=== PATIENT | female | born 1940 | race Caucasian/White ===

== ENCOUNTER → 2017-03-01 | Outpatient (CLI) | payer MEDICARE ==
[~2017-03-01] MED LIST: ALPHAGAN-P5 ML OU; ASA325 MG PO; COMPAZINE10 MG PO; CORTISPORIN CR7.5 GM; CULTURELLE1 CAP PO; DUONEB DPS3 ML IH; KLONOPIN DPS1 MG PO; MILK OF MAGNESI10 ML PO; MIRALAX PACKET17 GM PO; NEURONTIN DPS300 MG PO; NORVASC5 MG PO; PRESERVISION A1 EAC1 PO; PROTONIX40 MG PO; SENOKOT S1 TAB PO; SURFAK DPS240 MG PO; SYNTHROID DP0.075 MG PO; THERA1 EACH PO; TUMS DPS500 MG PO; TYLENOL DPS325 MG PO; ULTRAM DPS50 MG PO; VITAMIN D50000 UNIT PO; ZOCOR DPS40 MG PO; ZOFRAN4 MG PO
== END | disposition home or self-care (01) ==
LOC: RAD.S 09:14
DX: H53.2 Diplopia (principal); G31.9 Degenerative disease of nervous system, unspecified; R51 Headache; R90.89 Other abnormal findings on diagnostic imaging of central nervous system